=== PATIENT | female | born 1960 | race Caucasian/White ===

== ENCOUNTER 2017-07-31 14:29 | Outpatient (CLI) | payer OTHER ==
[~2017-07-31 14:29] MED LIST: PROTONIX40 MG PO
== END 2017-07-31 14:46 | disposition home or self-care (01) ==
LOC: MRI 14:29
DX: M25.571 Pain in right ankle and joints of right foot (principal)
CPT/HCPCS: 73718

== ENCOUNTER 2018-01-01 14:52 | Outpatient (CLI) | payer OTHER | END 2018-01-01 14:55 | disposition home or self-care (01) | LOC: RAD 14:52 | DX: J06.9 Acute upper respiratory infection, unspecified (principal); M50.90 Cervical disc disorder, unspecified, unspecified cervical region; M06.4 Inflammatory polyarthropathy; M06.9 Rheumatoid arthritis, unspecified; L40.8 Other psoriasis; L40.59 Other psoriatic arthropathy; M67.479 Ganglion, unspecified ankle and foot ==

== ENCOUNTER 2018-01-27 13:49 | Outpatient (CLI) | payer OTHER | END 2018-01-27 13:57 | disposition home or self-care (01) | LOC: NUCLEAR 13:49 | DX: M81.0 Age-related osteoporosis without current pathological fracture (principal); M50.90 Cervical disc disorder, unspecified, unspecified cervical region; M06.4 Inflammatory polyarthropathy; L40.8 Other psoriasis; L40.59 Other psoriatic arthropathy; M67.479 Ganglion, unspecified ankle and foot ==

== ENCOUNTER 2018-05-13 14:14 | Outpatient (CLI) | payer OTHER | END 2018-05-13 14:18 | disposition home or self-care (01) | LOC: RAD 14:14 | DX: L40.0 Psoriasis vulgaris (principal); M06.00 Rheumatoid arthritis without rheumatoid factor, unspecified site; M54.5 Low back pain; G62.89 Other specified polyneuropathies ==

== ENCOUNTER 2018-09-01 08:47 | Outpatient (CLI) | payer OTHER | END 2018-09-01 08:54 | disposition home or self-care (01) | LOC: SONOGRAMA 08:47 → MAMO-SONO 09:15 | DX: M06.89 Other specified rheumatoid arthritis, multiple sites (principal); B20 Human immunodeficiency virus [HIV] disease; C54.1 Malignant neoplasm of endometrium ==

== ENCOUNTER 2018-09-03 14:40 | Outpatient (CLI) | payer OTHER | END 2018-09-03 14:41 | disposition home or self-care (01) | LOC: RAD 14:40 | DX: M50.90 Cervical disc disorder, unspecified, unspecified cervical region (principal); M06.4 Inflammatory polyarthropathy; M06.89 Other specified rheumatoid arthritis, multiple sites; L40.8 Other psoriasis; L40.54 Psoriatic juvenile arthropathy; M67.479 Ganglion, unspecified ankle and foot; J44.9 Chronic obstructive pulmonary disease, unspecified ==

== ENCOUNTER 2019-01-11 14:34 | Outpatient (CLI) | payer OTHER ==
[2019-01-18] MEDS ORDERED: PEPCID AC20 MG PO (10:41)
[2019-01-18] MEDS ORDERED: TYLENOL325 MG PO (10:42)
== END 2019-01-11 14:41 | disposition home or self-care (01) ==
LOC: RAD 14:34
DX: K40.20 Bilateral inguinal hernia, without obstruction or gangrene, not specified as recurrent (principal); Z01.811 Encounter for preprocedural respiratory examination

== ENCOUNTER 2019-01-26 05:50 | Day surgery (SDC) | payer OTHER ==
[~2019-01-26 05:50] MED LIST changes: +PEPCID AC20 MG PO; +TYLENOL325 MG PO
[2019-01-26] MEDS ORDERED: PERCOCET 5-3251 EACH PO (09:47)
[2019-01-26] MEDS ORDERED: COLACE100 MG PO (09:49)
[2019-01-26] MEDS ORDERED: NEURONTIN300 MG PO (09:49)
== END 2019-01-26 12:53 | disposition home or self-care (01) ==
LOC: CIR.AMB 05:50
DX: K40.20 Bilateral inguinal hernia, without obstruction or gangrene, not specified as recurrent (principal); D17.1 Benign lipomatous neoplasm of skin and subcutaneous tissue of trunk

== ENCOUNTER 2019-03-30 09:31 | Outpatient (CLI) | payer OTHER ==
[~2019-03-30 09:31] MED LIST changes: +COLACE100 MG PO; +NEURONTIN300 MG PO; +PERCOCET 5-3251 EACH PO
== END 2019-03-30 10:00 | disposition home or self-care (01) ==
LOC: MRI 09:31
DX: M05.79 Rheumatoid arthritis with rheumatoid factor of multiple sites without organ or systems involvement (principal); M65.871 Other synovitis and tenosynovitis, right ankle and foot
CPT/HCPCS: 73718

== ENCOUNTER 2020-01-23 14:07 | Outpatient (CLI) | payer OTHER | END 2020-01-23 14:18 | disposition home or self-care (01) | LOC: MRI 14:07 | PROVIDERS: ATTEND General Practice | DX: M19.011 Primary osteoarthritis, right shoulder (principal); R29.898 Other symptoms and signs involving the musculoskeletal system; M79.601 Pain in right arm; M06.8A Other specified rheumatoid arthritis, other specified site | CPT/HCPCS: 73221 ==

== ENCOUNTER 2020-03-07 13:53 | Outpatient (CLI) | payer OTHER | END 2020-03-07 13:57 | disposition HB | LOC: RAD 13:53 | DX: K29.50 Unspecified chronic gastritis without bleeding (principal); K21.9 Gastro-esophageal reflux disease without esophagitis; M50.90 Cervical disc disorder, unspecified, unspecified cervical region; M06.049 Rheumatoid arthritis without rheumatoid factor, unspecified hand; M06.4 Inflammatory polyarthropathy; M06.9 Rheumatoid arthritis, unspecified; L40.8 Other psoriasis; L40.59 Other psoriatic arthropathy; M67.479 Ganglion, unspecified ankle and foot; I10 Essential (primary) hypertension ==

== ENCOUNTER 2020-05-09 16:46 | Outpatient (CLI) | payer OTHER | END 2020-05-09 18:00 | disposition home or self-care (01) | LOC: TOM 16:46 | PROVIDERS: ATTEND Orthopaedic Surgery Foot and Ankle Surgery | DX: M19.011 Primary osteoarthritis, right shoulder (principal); M47.22 Other spondylosis with radiculopathy, cervical region; M84.362S Stress fracture, left tibia, sequela ==

== ENCOUNTER 2020-07-02 10:06 | Outpatient (CLI) | payer OTHER | END 2020-07-02 10:10 | disposition home or self-care (01) | LOC: NUCLEAR 10:06 | PROVIDERS: ATTEND Specialist | DX: M81.0 Age-related osteoporosis without current pathological fracture (principal) ==

== ENCOUNTER 2020-07-02 11:55 | Outpatient (CLI) | payer OTHER | END 2020-07-02 12:00 | disposition home or self-care (01) | LOC: RAD 11:55 | PROVIDERS: ATTEND Specialist | DX: M05.79 Rheumatoid arthritis with rheumatoid factor of multiple sites without organ or systems involvement (principal); J45.909 Unspecified asthma, uncomplicated; M51.36 Other intervertebral disc degeneration, lumbar region ==

== ENCOUNTER 2021-05-09 15:27 | Outpatient (CLI) | payer OTHER | END 2021-05-09 15:38 | disposition home or self-care (01) | LOC: RAD 15:27 | PROVIDERS: ATTEND Specialist | DX: M76.52 Patellar tendinitis, left knee (principal); Z96.652 Presence of left artificial knee joint ==

== ENCOUNTER 2021-05-15 13:17 | Outpatient (CLI) | payer OTHER | END 2021-05-15 13:28 | disposition home or self-care (01) | LOC: MRI 13:17 | PROVIDERS: ATTEND Specialist | DX: M06.9 Rheumatoid arthritis, unspecified (principal); M81.0 Age-related osteoporosis without current pathological fracture; M46.1 Sacroiliitis, not elsewhere classified; M16.0 Bilateral primary osteoarthritis of hip; M41.30 Thoracogenic scoliosis, site unspecified; M51.36 Other intervertebral disc degeneration, lumbar region; M51.26 Other intervertebral disc displacement, lumbar region; M54.16 Radiculopathy, lumbar region; M48.07 Spinal stenosis, lumbosacral region | CPT/HCPCS: 72148 ==

== ENCOUNTER 2021-05-16 15:48 | Outpatient (CLI) | payer OTHER | END 2021-05-16 15:55 | disposition home or self-care (01) | LOC: RAD 15:48 | PROVIDERS: ATTEND Specialist | DX: M06.042 Rheumatoid arthritis without rheumatoid factor, left hand (principal) ==

== ENCOUNTER 2021-06-19 15:08 | Outpatient (CLI) | payer OTHER | END 2021-06-19 15:27 | disposition home or self-care (01) | LOC: RAD 15:08 | PROVIDERS: ATTEND Orthopaedic Surgery | DX: M06.042 Rheumatoid arthritis without rheumatoid factor, left hand (principal) ==

== ENCOUNTER 2022-01-27 08:16 | Outpatient (CLI) | payer OTHER | END 2022-01-27 08:27 | disposition home or self-care (01) | LOC: RX STUDY 08:16 | PROVIDERS: ATTEND Specialist | DX: R10.9 Unspecified abdominal pain (principal) ==

== ENCOUNTER 2022-05-26 14:01 | Outpatient (CLI) | payer OTHER | END 2022-05-26 14:04 | disposition home or self-care (01) | LOC: RAD 14:01 | PROVIDERS: ATTEND Orthopaedic Surgery | DX: M48.061 Spinal stenosis, lumbar region without neurogenic claudication (principal); M54.16 Radiculopathy, lumbar region; Z98.890 Other specified postprocedural states ==

== ENCOUNTER 2022-07-18 13:42 | Outpatient (CLI) | payer OTHER | END 2022-07-18 13:43 | disposition home or self-care (01) | LOC: NUCLEAR 13:42 | PROVIDERS: ATTEND Specialist | DX: M81.0 Age-related osteoporosis without current pathological fracture (principal); M06.9 Rheumatoid arthritis, unspecified ==

== ENCOUNTER 2022-10-21 09:46 | Inpatient (IN) | payer OTHER ==
[~2022-10-21] VITALS: Ht 167.6 cm; Wt 55.8 kg
[2022-10-21] MEDS ORDERED: SIMPONI AR50 MG/4 ML IV (10:06)
--- NOTE | 2022-10-21 10:24 | NUR ---
PTE ALERTA Y ORIENTADA X3 EN COMPANAI DE FAMILIAR REFIERE DOLOR EN FLASH CALDWELL. SE OBSERVA AREA KELLY Y CALIENTE AL TACTO. PTE CON PULSO 140LAT/MIN AL MOMENTO EL TRIAGE. SE REALIZA EKG Y SE PRESENTA A DRA. GHOTRA LA CUAL EVALUA Y FIRMA EL MISMO Y REFIERE UBICAR EN BRENDAN.
--- NOTE | 2022-10-21 10:42 | NUR ---
PTE EVALAUDO MPOR DR. DAMON SE EJECUTA ORDEN MEDICA Y SE ALBER MUESTRA BAJO MEDIDAS ASEPTICAS, SE ORIENTA PTE SOBRE TRATAMIENTO REFIERE ENTENDER
[2022-10-21 10:56] LABS: HEMATOCRIT 53.2 % (36.0-45.00); HEMOGLOBIN 17.7 g/dL (12.0-15.00); MEAN CELL VOLUME 110.3 fL (80.00-100.00); MEAN CORPUSCULAR HEMOGLOBIN 36.6 pg (27.00-32.0); MEAN CORPUSCULAR HGB CONC 33.2 g/dl (32.0-36.0); PLATELET COUNT 137 K/uL (150-450); RED BLOOD COUNT 4.83 M/uL (4.00-6.00); RED CELL DISTRIBUTION WIDTH 15.7 % (11.5-14.5)
[2022-10-21 12:12] LABS: INR 1.17; PARTIAL THROMBOPLASTIN TIME 31.7 SECONDS (22.0-34.0); PROTHROMBIN TIME 12.1 SECONDS (9.0-11.5)
[2022-10-21 12:17] LABS: CALCIUM 9.5 mg/dL (8.5-10.1); CREATININE SERUM 1.51 mg/dL (0.55-1.02); GFR 34.69; POTASSIUM 3.87 mEq/L (3.5-5.1)
[2022-10-22 01:50] LABS: INR 1.23; PROTHROMBIN TIME 12.7 SECONDS (9.0-11.5)
[2022-10-22] MEDS ORDERED: PANTOPRAZOLE SO40 MG (10:41)
[2022-10-22] MEDS ORDERED: CLEARLAX119 GM (10:41)
[2022-10-22] MEDS ORDERED: VITAMIN C1000 MG (10:42)
[2022-10-22] MEDS ORDERED: MAXIMUM D3325 MCG (10:42)
[2022-10-22] MEDS ORDERED: BIOTIN10 MG (10:42)
[2022-10-22] MEDS ORDERED: DESCOVY 200-251 EACH (10:42)
[2022-10-22] MEDS ORDERED: FOLIC ACID1 MG (10:42)
[2022-10-22] MEDS ORDERED: MULTI-VITAMIN1 EACH (10:42)
[2022-10-22] MEDS ORDERED: EVOTAZ 300 MG-1 EACH (10:42)
[2022-10-22] MEDS ORDERED: OMEGA-3 ACID ETH1 GM (10:42)
[2022-10-22] MEDS ORDERED: A/F PAIN RELIE500 MG (10:42)
[2022-10-22] MEDS ORDERED: MEGESTROL400 MG/10 (10:42)
[2022-10-22 21:20] LABS: CALCIUM 9.2 mg/dL (8.5-10.1); CREATININE SERUM 1.66 mg/dL (0.55-1.02); GFR 31.1; POTASSIUM 4.28 mEq/L (3.5-5.1)
[2022-10-24 05:48] LABS: ALBUMIN 1.9 gm/dL (3.4-5.0); BILIRUBIN TOTAL 2.01 mg/dL (0.3-1.2); CALCIUM 8.4 mg/dL (8.5-10.1); CREATININE SERUM 1.75 mg/dL (0.55-1.02); GFR 29.26; GLOBULINA 3.7 G/DL (2.4-3.5); POTASSIUM 3.71 mEq/L (3.5-5.1); TOTAL PROTEIN 5.6 gm/dL (6.4-8.2)
[2022-10-24 05:56] LABS: HEMATOCRIT 46.6 % (36.0-45.00); HEMOGLOBIN 15.7 g/dL (12.0-15.00); MEAN CELL VOLUME 109.2 fL (80.00-100.00); MEAN CORPUSCULAR HEMOGLOBIN 36.9 pg (27.00-32.0); MEAN CORPUSCULAR HGB CONC 33.8 g/dl (32.0-36.0); RED BLOOD COUNT 4.26 M/uL (4.00-6.00); RED CELL DISTRIBUTION WIDTH 15.4 % (11.5-14.5)
[2022-10-24 07:06] LABS: PLATELET COUNT 105 K/uL (150-450)
[2022-10-25 09:37] LABS: ALBUMIN 1.8 gm/dL (3.4-5.0); BILIRUBIN TOTAL 1.43 mg/dL (0.3-1.2); CALCIUM 8.4 mg/dL (8.5-10.1); CREATININE SERUM 2.17 mg/dL (0.55-1.02); GFR 22.83; GLOBULINA 3.6 G/DL (2.4-3.5); POTASSIUM 4.3 mEq/L (3.5-5.1); TOTAL PROTEIN 5.4 gm/dL (6.4-8.2)
[2022-10-26 08:18] LABS: HEMATOCRIT 41.2 % (36.0-45.00); HEMOGLOBIN 14.3 g/dL (12.0-15.00); MEAN CORPUSCULAR HEMOGLOBIN 37.4 pg (27.00-32.0); MEAN CORPUSCULAR HGB CONC 34.6 g/dl (32.0-36.0); RED BLOOD COUNT 3.82 M/uL (4.00-6.00); RED CELL DISTRIBUTION WIDTH 15.6 % (11.5-14.5)
[2022-10-26 08:23] LABS: PLATELET COUNT 113 K/uL (150-450)
[2022-10-26 08:24] LABS: ALBUMIN 1.9 gm/dL (3.4-5.0); BILIRUBIN TOTAL 3.32 mg/dL (0.3-1.2); CALCIUM 8.5 mg/dL (8.5-10.1); CREATININE SERUM 1.89 mg/dL (0.55-1.02); GFR 26.78; GLOBULINA 3.9 G/DL (2.4-3.5); POTASSIUM 3.59 mEq/L (3.5-5.1); TOTAL PROTEIN 5.8 gm/dL (6.4-8.2)
[2022-10-27 08:15] LABS: HEMATOCRIT 41.7 % (36.0-45.00); MEAN CELL VOLUME 109.6 fL (80.00-100.00); MEAN CORPUSCULAR HEMOGLOBIN 36.9 pg (27.00-32.0); MEAN CORPUSCULAR HGB CONC 33.7 g/dl (32.0-36.0); PLATELET COUNT 119 K/uL (150-450); RED CELL DISTRIBUTION WIDTH 15.4 % (11.5-14.5)
[2022-10-29 06:44] LABS: HEMATOCRIT 36.9 % (36.0-45.00); HEMOGLOBIN 12.5 g/dL (12.0-15.00); MEAN CELL VOLUME 108.9 fL (80.00-100.00); MEAN CORPUSCULAR HEMOGLOBIN 36.8 pg (27.00-32.0); MEAN CORPUSCULAR HGB CONC 33.8 g/dl (32.0-36.0); PLATELET COUNT 130 K/uL (150-450); RED BLOOD COUNT 3.39 M/uL (4.00-6.00); RED CELL DISTRIBUTION WIDTH 15.1 % (11.5-14.5)
[2022-10-30 07:50] LABS: HEMATOCRIT 39.3 % (36.0-45.00); HEMOGLOBIN 13.5 g/dL (12.0-15.00); MEAN CELL VOLUME 107.8 fL (80.00-100.00); MEAN CORPUSCULAR HEMOGLOBIN 36.9 pg (27.00-32.0); MEAN CORPUSCULAR HGB CONC 34.2 g/dl (32.0-36.0); PLATELET COUNT 176 K/uL (150-450); RED BLOOD COUNT 3.65 M/uL (4.00-6.00); RED CELL DISTRIBUTION WIDTH 15.1 % (11.5-14.5)
[2022-10-31 09:48] LABS: HEMATOCRIT 37.8 % (36.0-45.00); HEMOGLOBIN 12.9 g/dL (12.0-15.00); MEAN CELL VOLUME 108.2 fL (80.00-100.00); MEAN CORPUSCULAR HEMOGLOBIN 36.9 pg (27.00-32.0); MEAN CORPUSCULAR HGB CONC 34.1 g/dl (32.0-36.0); PLATELET COUNT 199 K/uL (150-450); RED BLOOD COUNT 3.49 M/uL (4.00-6.00)
[2022-11-01 07:59] LABS: ALBUMIN 1.7 gm/dL (3.4-5.0); BILIRUBIN TOTAL 2.38 mg/dL (0.3-1.2); CREATININE SERUM 1.78 mg/dL (0.55-1.02); GFR 28.69; GLOBULINA 4.1 G/DL (2.4-3.5); POTASSIUM 3.28 mEq/L (3.5-5.1); TOTAL PROTEIN 5.8 gm/dL (6.4-8.2)
[2022-11-01 08:08] LABS: HEMATOCRIT 33.5 % (36.0-45.00); HEMOGLOBIN 11.2 g/dL (12.0-15.00); MEAN CELL VOLUME 109.5 fL (80.00-100.00); MEAN CORPUSCULAR HEMOGLOBIN 36.6 pg (27.00-32.0); MEAN CORPUSCULAR HGB CONC 33.4 g/dl (32.0-36.0); PLATELET COUNT 212 K/uL (150-450); RED BLOOD COUNT 3.06 M/uL (4.00-6.00); RED CELL DISTRIBUTION WIDTH 15.1 % (11.5-14.5)
[2022-11-04 08:35] LABS: ALBUMIN 1.7 gm/dL (3.4-5.0); BILIRUBIN TOTAL 0.47 mg/dL (0.3-1.2); CALCIUM 7.7 mg/dL (8.5-10.1); CREATININE SERUM 1.18 mg/dL (0.55-1.02); GFR 46.11; GLOBULINA 4.3 G/DL (2.4-3.5); POTASSIUM 3.5 mEq/L (3.5-5.1)
[2022-11-05 07:56] LABS: HEMATOCRIT 28.4 % (36.0-45.00); HEMOGLOBIN 9.5 g/dL (12.0-15.00); MEAN CELL VOLUME 107.8 fL (80.00-100.00); MEAN CORPUSCULAR HEMOGLOBIN 36.2 pg (27.00-32.0); MEAN CORPUSCULAR HGB CONC 33.6 g/dl (32.0-36.0); PLATELET COUNT 276 K/uL (150-450); RED BLOOD COUNT 2.63 M/uL (4.00-6.00); RED CELL DISTRIBUTION WIDTH 14.5 % (11.5-14.5)
[2022-11-05 08:30] LABS: ALBUMIN 1.6 gm/dL (3.4-5.0); CALCIUM 7.7 mg/dL (8.5-10.1); CREATININE SERUM 1.04 mg/dL (0.55-1.02); GFR 53.35; POTASSIUM 3.55 mEq/L (3.5-5.1)
[2022-11-06 07:59] LABS: HEMATOCRIT 29.6 % (36.0-45.00); MEAN CELL VOLUME 108.5 fL (80.00-100.00); MEAN CORPUSCULAR HGB CONC 33.8 g/dl (32.0-36.0); PLATELET COUNT 251 K/uL (150-450); RED BLOOD COUNT 2.73 M/uL (4.00-6.00); RED CELL DISTRIBUTION WIDTH 14.9 % (11.5-14.5)
[2022-11-06 08:00] LABS: MEAN CORPUSCULAR HEMOGLOBIN 36.6 pg (27.00-32.0)
[2022-11-06 08:41] LABS: ALBUMIN 1.7 gm/dL (3.4-5.0); BILIRUBIN TOTAL 0.63 mg/dL (0.3-1.2); CALCIUM 7.6 mg/dL (8.5-10.1); CREATININE SERUM 1.03 mg/dL (0.55-1.02); GFR 53.95; GLOBULINA 4.4 G/DL (2.4-3.5); POTASSIUM 3.61 mEq/L (3.5-5.1); TOTAL PROTEIN 6.1 gm/dL (6.4-8.2)
[2022-11-08 20:20] LABS: HEMATOCRIT 31.6 % (36.0-45.00); HEMOGLOBIN 10.3 g/dL (12.0-15.00); MEAN CELL VOLUME 108.2 fL (80.00-100.00); MEAN CORPUSCULAR HEMOGLOBIN 35.4 pg (27.00-32.0); MEAN CORPUSCULAR HGB CONC 32.7 g/dl (32.0-36.0); PLATELET COUNT 222 K/uL (150-450); RED BLOOD COUNT 2.92 M/uL (4.00-6.00); RED CELL DISTRIBUTION WIDTH 15.2 % (11.5-14.5)
[2022-11-11 08:40] LABS: HEMATOCRIT 29.6 % (36.0-45.00); MEAN CELL VOLUME 106.2 fL (80.00-100.00); MEAN CORPUSCULAR HGB CONC 34.9 g/dl (32.0-36.0); PLATELET COUNT 183 K/uL (150-450); RED BLOOD COUNT 2.79 M/uL (4.00-6.00); RED CELL DISTRIBUTION WIDTH 14.7 % (11.5-14.5)
[2022-11-11 08:42] LABS: HEMOGLOBIN 10.4 g/dL (12.0-15.00); MEAN CORPUSCULAR HEMOGLOBIN 37.2 pg (27.00-32.0)
[2022-11-11 08:46] LABS: ERYTHROCYTE SEDIMENTATION RATE 73 mm/hr
[2022-11-11 09:42] LABS: ALBUMIN 1.9 gm/dL (3.4-5.0); BILIRUBIN TOTAL 2.12 mg/dL (0.3-1.2); CALCIUM 8.3 mg/dL (8.5-10.1); CREATININE SERUM 1.34 mg/dL (0.55-1.02); GFR 39.82; GLOBULINA 4.7 G/DL (2.4-3.5); POTASSIUM 3.39 mEq/L (3.5-5.1); TOTAL PROTEIN 6.6 gm/dL (6.4-8.2)
== END 2022-11-13 17:31 | disposition home or self-care (01) | DRG 580 ==
LOC: ER 09:46 → MEDJ 22:27
PROVIDERS: Emergency Medicine; General Practice; Internal Medicine; Internal Medicine Infectious Disease; Internal Medicine Nephrology; ADMIT Internal Medicine; ATTEND Internal Medicine
PROC: B54BZZZ Ultrasonography of Right Lower Extremity Veins (ICD-10-PCS; 2022-10-23)
PROC: BQ3DZZZ Magnetic Resonance Imaging (MRI) of Right Lower Leg (ICD-10-PCS; 2022-10-24)
PROC: B24BZZZ Ultrasonography of Heart with Aorta (ICD-10-PCS; 2022-10-24)
PROC: 02HV33Z Insertion of Infusion Device into Superior Vena Cava, Percutaneous Approach (ICD-10-PCS; 2022-10-26)
PROC: 0JDN0ZZ Extraction of Right Lower Leg Subcutaneous Tissue and Fascia, Open Approach (ICD-10-PCS; principal; 2022-10-31)
PROC: B54CZZZ Ultrasonography of Left Lower Extremity Veins (ICD-10-PCS; 2022-11-06)
PROC: 0JDQ0ZZ Extraction of Right Foot Subcutaneous Tissue and Fascia, Open Approach (ICD-10-PCS; 2022-11-12)
DX: L03.115 Cellulitis of right lower limb (principal); A02.9 Salmonella infection, unspecified; B20 Human immunodeficiency virus [HIV] disease; N17.9 Acute kidney failure, unspecified; R78.81 Bacteremia; B17.10 Acute hepatitis C without hepatic coma; I70.235 Atherosclerosis of native arteries of right leg with ulceration of other part of foot; L97.513 Non-pressure chronic ulcer of other part of right foot with necrosis of muscle; A46 Erysipelas; E86.0 Dehydration; E87.6 Hypokalemia; M06.9 Rheumatoid arthritis, unspecified; I12.9 Hypertensive chronic kidney disease with stage 1 through stage 4 chronic kidney disease, or unspecified chronic kidney disease; N18.9 Chronic kidney disease, unspecified; B96.89 Other specified bacterial agents as the cause of diseases classified elsewhere; Z20.822 Contact with and (suspected) exposure to COVID-19
CPT/HCPCS: 73725

== ENCOUNTER 2023-04-14 10:34 | Outpatient (CLI) | payer OTHER ==
[~2023-04-14 10:34] MED LIST changes: +A/F PAIN RELIE500 MG; +BIOTIN10 MG; +CLEARLAX119 GM; +DESCOVY 200-251 EACH; +EVOTAZ 300 MG-1 EACH; +FOLIC ACID1 MG; +MAXIMUM D3325 MCG; +MEGESTROL400 MG/10; +MULTI-VITAMIN1 EACH; +OMEGA-3 ACID ETH1 GM; +PANTOPRAZOLE SO40 MG; +SIMPONI AR50 MG/4 ML IV; +VITAMIN C1000 MG
== END 2023-04-14 10:39 | disposition home or self-care (01) ==
LOC: SONOGRAMA 10:34
PROVIDERS: ATTEND Specialist
DX: R22.1 Localized swelling, mass and lump, neck (principal); M51.36 Other intervertebral disc degeneration, lumbar region; M51.34 Other intervertebral disc degeneration, thoracic region; K29.50 Unspecified chronic gastritis without bleeding; K21.9 Gastro-esophageal reflux disease without esophagitis; M50.90 Cervical disc disorder, unspecified, unspecified cervical region; M06.4 Inflammatory polyarthropathy; M06.9 Rheumatoid arthritis, unspecified; L40.8 Other psoriasis; L40.59 Other psoriatic arthropathy; M67.479 Ganglion, unspecified ankle and foot